=== PATIENT | male | born 1965 | race Two or more races ===

== ENCOUNTER 2021-12-06 19:26 | Emergency (ER) | payer OTHER, SELFPAY ==
[2021-12-06 19:47] VITALS: BP 127/82; PULSE 91; RESP 18; TEMP 36.8; O2SAT 95; BMI 27.3
== END 2021-12-07 02:20 | disposition left against medical advice (07) ==
PROVIDERS: Emergency Provider Emergency Medicine; PCP Internal Medicine
DX: R06.02 Shortness of breath (principal); R10.9 Unspecified abdominal pain
CPT/HCPCS: 99282

== ENCOUNTER → 2022-05-13 09:27 | Outpatient (BNVA) | payer OTHER, SELFPAY | PROVIDERS: PCP Internal Medicine; Visit Provider Nurse Practitioner | DX: K86.1 Other chronic pancreatitis (principal); R10.9 Unspecified abdominal pain; R63.4 Abnormal weight loss; B18.1 Chronic viral hepatitis B without delta-agent | CPT/HCPCS: 99202 ==

== ENCOUNTER 2022-05-24 10:10 | Outpatient (REF) | payer OTHER, SELFPAY ==
[2022-05-24 10:31] LABS: MANUAL DIFF FLAG NO
[2022-05-24 10:44] LABS: Basophils Absolute Auto 0.1 X10*3/uL (0.0-0.2); Basophils Percent Auto 0.6 % (0-2); Eosinophils Absolute Auto 0.3 X10*3/uL (0.0-0.4); Eosinophils Percent Auto 2.4 % (0-4); Hematocrit 42.8 % (42.0-52.0); Hemoglobin 14.3 g/dl (14.0-18.0); Imm Gran Abs Auto 0.03 X10*3/uL (0.00-0.03); Imm Gran Pct Auto 0.3 % (0.0-0.4); Lymphocytes Percent Auto 34.9 % (20-40); Mean Corpuscular HGB Conc 33.4 g/dl (31.0-36.0); Mean Corpuscular Hemoglobin 28.5 pg (27.0-33.0); Mean Corpuscular Volume 85.3 fL (80.0-98.0); Mean Platelet Volume 9.8 fL (9.4-12.4); Monocytes Absolute Auto 0.8 X10*3/uL (0.1-1.2); Monocytes Percent Auto 7.2 % (2-11); Neutrophils Absolute Auto 6.3 x10*3/uL (2.0-8.3); Neutrophils Percent Auto 54.6 % (45-73); Platelet Count 233 X10*3/uL (160-400); Red Blood Count 5.02 X10*6/uL (4.60-5.80); Red Cell Distribution Width 13.9 % (11.0-16.0); White Blood Count 11.5 X10*3/uL (4.8-10.8)
[2022-05-24 11:40] LABS: Alanine Aminotransferase 38 U/L (0-40); Alkaline Phosphatase 100 U/L (39-117); Amylase 62 U/L (28-100); Anion Gap 14 (12-20); Aspartate Amino Transferase 36 U/L (5-37); Bilirubin Total 0.8 mg/dL (0.0-1.0); Blood Urea Nitrogen 13 mg/dL (9-16); Calcium 9.5 mg/dL (8.4-10.2); Carbon Dioxide 26 mmol/L (22-29); Chloride 102 mmol/L (96-108); Estimated Glomerular Filt Rate > 60; Glucose Random 97 mg/dL (60-115); Lipase 21 U/L (8-78); Potassium 4.1 mmol/L (3.3-5.1); Sodium 138 mmol/L (135-145); Total Protein 8.3 g/dL (6.5-8.0)
[2022-06-02 21:21] LABS: Pancreatic Elastase-1 187 mcg/g
== END 2022-05-24 10:11 | disposition home or self-care (01) ==
LOC: HO.LAB 10:10
PROVIDERS: PCP Pediatrics; Visit Provider Nurse Practitioner
DX: K86.1 Other chronic pancreatitis (principal); R10.9 Unspecified abdominal pain; R63.4 Abnormal weight loss
CPT/HCPCS: 36415; 80053; 82150; 82656; 83690; 85025

== ENCOUNTER → 2022-05-28 10:01 | Outpatient (BNVA) | payer OTHER, SELFPAY | PROVIDERS: PCP Pediatrics; Visit Provider Nurse Practitioner | DX: K59.04 Chronic idiopathic constipation (principal); K58.9 Irritable bowel syndrome, unspecified; K86.1 Other chronic pancreatitis; B18.1 Chronic viral hepatitis B without delta-agent; R10.9 Unspecified abdominal pain; R63.4 Abnormal weight loss; R11.2 Nausea with vomiting, unspecified | CPT/HCPCS: 99212 ==

== ENCOUNTER → 2022-06-15 12:46 | Outpatient (BNVA) | payer OTHER, SELFPAY | PROVIDERS: PCP Pediatrics; Visit Provider Nurse Practitioner | DX: K86.1 Other chronic pancreatitis (principal); K59.04 Chronic idiopathic constipation; R11.2 Nausea with vomiting, unspecified | CPT/HCPCS: 99212 ==

== ENCOUNTER 2022-06-21 09:57 | Outpatient (REF) | payer OTHER, SELFPAY ==
--- NOTE | ~2022-06-21 | US_ITS ---
EXAMINATION: US ABDOMEN COMPLETE CLINICAL INFORMATION: Other chronic pancreatitis. COMPARISON: Abdominal ultrasound 11/19/2008 TECHNIQUE: Real-time imaging of the abdominal viscera. FINDINGS: PANCREAS: Obscured by bowel gas. ABDOMINAL AORTA: The proximal, mid, and distal segments are normal in caliber. INFERIOR VENA CAVA: Visualized portions are normal. LIVER: The liver is normal in size. The liver contour is normal. There is diffuse increased liver parenchymal echogenicity, consistent with infiltrative hepatocellular disease. No focal hepatic lesion. Trace possible intrahepatic biliary duct dilatation. GALLBLADDER: Patient reports tenderness over the gallbladder. The gallbladder is physiologically distended without evidence of stones, polyps, wall thickening or pericholecystic fluid. COMMON BILE DUCT: Dilated measuring 1.0 cm in diameter. RIGHT KIDNEY: Normal. No hydronephrosis. No renal calculi or focal parenchymal lesions. The kidney measures 10.6 cm in maximum dimension. LEFT KIDNEY: Normal. No hydronephrosis. No renal calculi or focal parenchymal lesions. The kidney measures 11.3 cm in maximum dimension. SPLEEN: Normal. The spleen measures 10.0 cm in maximum dimension. FREE FLUID: None. US/US abdomen complete IMPRESSION: Patient reports tenderness over the gallbladder however there is no cholelithiasis or other findings to suggest cholecystitis. Increased hepatic echogenicity which can be seen in the setting of hepatic steatosis or underlying liver disease. No liver lesion. Common bile duct is mildly dilated with trace possible intrahepatic biliary duct dilatation. Consider correlation with LFTs and MRCP if warranted.
== END 2022-06-21 09:58 | disposition home or self-care (01) ==
LOC: HO.HMGCX 09:57
PROVIDERS: PCP Pediatrics; Visit Provider Nurse Practitioner
DX: K86.1 Other chronic pancreatitis (principal); B18.1 Chronic viral hepatitis B without delta-agent
CPT/HCPCS: 76700

== ENCOUNTER → 2022-07-01 09:58 | Outpatient (BNVA) | payer OTHER, SELFPAY | PROVIDERS: PCP Pediatrics; Visit Provider Nurse Practitioner | DX: K86.1 Other chronic pancreatitis (principal); K59.04 Chronic idiopathic constipation; R11.2 Nausea with vomiting, unspecified | CPT/HCPCS: 99212 ==

== ENCOUNTER → 2022-09-15 13:16 | Outpatient (BNVA) | payer OTHER, SELFPAY | PROVIDERS: PCP Pediatrics; Visit Provider Nurse Practitioner | DX: R10.11 Right upper quadrant pain (principal); B18.1 Chronic viral hepatitis B without delta-agent | CPT/HCPCS: 99212 ==

== ENCOUNTER 2022-10-13 12:54 | Outpatient (REF) | payer OTHER, SELFPAY | END 2022-10-13 12:55 | disposition home or self-care (01) | LOC: HO.LAB 12:54 | PROVIDERS: PCP Pediatrics; Visit Provider Internal Medicine | DX: B18.1 Chronic viral hepatitis B without delta-agent (principal) | CPT/HCPCS: 99202 ==

== ENCOUNTER 2022-12-01 09:26 | Outpatient (REF) | payer OTHER, SELFPAY | END 2022-12-01 09:27 | disposition home or self-care (01) | LOC: HO.XRAY 09:26 | PROVIDERS: PCP Pediatrics; Visit Provider Internal Medicine Rheumatology | DX: Z13.89 Encounter for screening for other disorder (principal) ==

== ENCOUNTER 2022-12-02 11:38 | Outpatient (REF) | payer OTHER, SELFPAY ==
--- NOTE | ~2022-12-02 | XR_ITS ---
EXAMINATION: X-RAY RIGHT HAND X-RAY LEFT HAND CLINICAL INFORMATION: Pain. COMPARISON: None TECHNIQUE: 3 views of each hand. FINDINGS: No acute fractures or subluxation. Carpal rows are maintained. Negative ulnar variance in the right wrist with joint space narrowing and subcortical sclerosis of the radiocarpal articulation suggesting degenerative osteoarthritis. Mild joint space narrowing and subcortical sclerosis of the first carpometacarpal space, greater on the right hand. There is also mild multifocal joint space narrowing with very tiny osteophyte at multiple interphalangeal joints. No erosions or chondrocalcinosis. No unexpected radiopaque foreign bodies. XR/XR hand RT min 3V IMPRESSION: 1. No acute fractures or subluxation. 2. Negative ulnar variance in the right wrist. 3. Mild degenerative osteoarthritis of the radiocarpal, first carpometacarpal joints and interphalangeal joints, greater on the right hand.
--- NOTE | ~2022-12-02 | XR_ITS ---
EXAMINATION: X-RAY RIGHT SHOULDER X-RAY LEFT SHOULDER CLINICAL INFORMATION: Pain. COMPARISON: None. TECHNIQUE: 4 views of each shoulder. FINDINGS: No acute fractures or subluxation. Small enthesophytes in the right greater than left acromioclavicular joints. No abnormal soft tissue calcifications. The included portions of the ribs, lungs and cardiomediastinum are within normal limits. XR/XR shoulder LT min 2V IMPRESSION: 1. No acute fractures or subluxation. 2. Mild degenerative osteoarthritis of the acromioclavicular joints.
--- NOTE | ~2022-12-02 | XR_ITS ---
EXAMINATION: X-RAY RIGHT SHOULDER X-RAY LEFT SHOULDER CLINICAL INFORMATION: Pain. COMPARISON: None. TECHNIQUE: 4 views of each shoulder. FINDINGS: No acute fractures or subluxation. Small enthesophytes in the right greater than left acromioclavicular joints. No abnormal soft tissue calcifications. The included portions of the ribs, lungs and cardiomediastinum are within normal limits. XR/XR shoulder RT min 2V IMPRESSION: 1. No acute fractures or subluxation. 2. Mild degenerative osteoarthritis of the acromioclavicular joints.
--- NOTE | ~2022-12-02 | XR_ITS ---
EXAMINATION: X-RAY RIGHT HAND X-RAY LEFT HAND CLINICAL INFORMATION: Pain. COMPARISON: None TECHNIQUE: 3 views of each hand. FINDINGS: No acute fractures or subluxation. Carpal rows are maintained. Negative ulnar variance in the right wrist with joint space narrowing and subcortical sclerosis of the radiocarpal articulation suggesting degenerative osteoarthritis. Mild joint space narrowing and subcortical sclerosis of the first carpometacarpal space, greater on the right hand. There is also mild multifocal joint space narrowing with very tiny osteophyte at multiple interphalangeal joints. No erosions or chondrocalcinosis. No unexpected radiopaque foreign bodies. XR/XR hand LT min 3V IMPRESSION: 1. No acute fractures or subluxation. 2. Negative ulnar variance in the right wrist. 3. Mild degenerative osteoarthritis of the radiocarpal, first carpometacarpal joints and interphalangeal joints, greater on the right hand.
== END 2022-12-02 11:39 | disposition home or self-care (01) ==
LOC: HO.XRAY 11:38
PROVIDERS: PCP Internal Medicine; Visit Provider Internal Medicine Rheumatology
DX: M79.641 Pain in right hand (principal); M79.642 Pain in left hand; M25.511 Pain in right shoulder; M25.512 Pain in left shoulder
CPT/HCPCS: 73030; 73130

== ENCOUNTER 2022-12-27 10:59 | Outpatient (REF) | payer OTHER, SELFPAY ==
[2022-12-27 11:17] LABS: MANUAL DIFF FLAG NO
[2022-12-27 12:00] LABS: Basophils Absolute Auto 0.1 X10*3/uL (0.0-0.2); Basophils Percent Auto 0.5 % (0-2); Eosinophils Absolute Auto 0.5 X10*3/uL (0.0-0.4); Eosinophils Percent Auto 4.3 % (0-4); Hematocrit 45.6 % (42.0-52.0); Hemoglobin 14.9 g/dl (14.0-18.0); Imm Gran Abs Auto 0.02 X10*3/uL (0.00-0.03); Imm Gran Pct Auto 0.2 % (0.0-0.4); Lymphocytes Absolute Auto 3.8 X10*3/uL (1.2-4.9); Lymphocytes Percent Auto 34.9 % (20-40); Mean Corpuscular HGB Conc 32.7 g/dl (31.0-36.0); Mean Corpuscular Hemoglobin 28.3 pg (27.0-33.0); Mean Corpuscular Volume 86.5 fL (80.0-98.0); Mean Platelet Volume 10.6 fL (9.4-12.4); Monocytes Absolute Auto 0.8 X10*3/uL (0.1-1.2); Monocytes Percent Auto 7.6 % (2-11); Neutrophils Absolute Auto 5.7 x10*3/uL (2.0-8.3); Neutrophils Percent Auto 52.5 % (45-73); Platelet Count 226 X10*3/uL (160-400); Red Blood Count 5.27 X10*6/uL (4.60-5.80); Red Cell Distribution Width 13.3 % (11.0-16.0); White Blood Count 10.9 X10*3/uL (4.8-10.8)
[2022-12-27 12:42] LABS: Alanine Aminotransferase 36 U/L (0-40); Albumin Level 4.3 g/dL (3.5-5.0); Alkaline Phosphatase 92 U/L (39-117); Anion Gap 15 (12-20); Aspartate Amino Transferase 35 U/L (5-37); Bilirubin Total 1.1 mg/dL (0.0-1.0); Blood Urea Nitrogen 12 mg/dL (9-16); C Reactive Protein 0.74 mg/dL (< or = 0.50); Calcium 9.5 mg/dL (8.4-10.2); Carbon Dioxide 27 mmol/L (22-29); Chloride 102 mmol/L (96-108); Estimated Glomerular Filt Rate > 60; Glucose Random 79 mg/dL (60-115); Potassium 4.6 mmol/L (3.3-5.1); Sodium 139 mmol/L (135-145); Total Protein 7.8 g/dL (6.5-8.0)
[2022-12-27 12:47] LABS: Erythrocyte Sedimentation Rate 13 MM/HR (0-15)
[2022-12-28 12:58] LABS: Cyclic Citrullinated Peptide <16 UNITS
== END 2022-12-27 11:00 | disposition home or self-care (01) ==
LOC: HO.LAB 10:59
PROVIDERS: Visit Provider Internal Medicine Rheumatology
DX: M25.511 Pain in right shoulder (principal); M25.512 Pain in left shoulder; M79.641 Pain in right hand; M79.642 Pain in left hand
CPT/HCPCS: 36415; 80053; 85025; 85652; 86140; 86200

== ENCOUNTER → 2023-01-05 09:12 | Outpatient (BNVA) | payer OTHER, SELFPAY | PROVIDERS: PCP Internal Medicine; Visit Provider Internal Medicine Rheumatology | DX: M19.041 Primary osteoarthritis, right hand (principal); M19.042 Primary osteoarthritis, left hand; M50.30 Other cervical disc degeneration, unspecified cervical region; M51.36 Other intervertebral disc degeneration, lumbar region; M75.81 Other shoulder lesions, right shoulder; M75.82 Other shoulder lesions, left shoulder | CPT/HCPCS: 99212 ==

== ENCOUNTER → 2023-02-10 11:39 | Outpatient (BNVA) | payer OTHER, SELFPAY | PROVIDERS: PCP Pediatrics; Referring Provider Pediatrics; Visit Provider Nurse Practitioner | DX: R10.9 Unspecified abdominal pain (principal); K70.0 Alcoholic fatty liver; B18.1 Chronic viral hepatitis B without delta-agent; Z79.899 Other long term (current) drug therapy; Z86.010 Personal history of colon polyps | CPT/HCPCS: 99212 ==

== ENCOUNTER 2023-03-01 09:23 | Outpatient (REF) | payer OTHER, SELFPAY ==
--- NOTE | ~2023-03-01 | US_ITS ---
EXAMINATION: US ABDOMEN COMPLETE CLINICAL INFORMATION: Alcoholic fatty liver. Pain in the epigastric area. Evaluate for hernia. COMPARISON: Ultrasound abdomen complete 06/21/2022 and 11/19/2008. TECHNIQUE: Real-time imaging of the abdominal viscera. FINDINGS: PANCREAS: Most of the pancreas was obscured by bowel gas and could not be evaluated. ABDOMINAL AORTA: The proximal, mid, and distal segments are normal in caliber. INFERIOR VENA CAVA: Visualized portions are normal. LIVER: The liver is normal in size. The liver contour is normal. There is diffuse heterogeneous increased liver parenchymal echogenicity, consistent with hepatic steatosis. No focal hepatic lesion. There is no intrahepatic biliary duct dilatation seen. GALLBLADDER: The gallbladder is physiologically distended without evidence of stones, sludge, polyps, wall thickening or pericholecystic fluid. COMMON BILE DUCT: Normal in caliber measuring 0.8 cm in diameter. RIGHT KIDNEY: Normal. No hydronephrosis. No renal calculi or focal parenchymal lesions. The kidney measures 9.3 cm in maximum dimension. LEFT KIDNEY: Normal. No hydronephrosis. No renal calculi or focal parenchymal lesions. The kidney measures 11.4 cm in maximum dimension. SPLEEN: Normal. The spleen measures 9.8 cm in maximum dimension. FREE FLUID: None. ADDITIONAL FINDINGS: No hernias were visualized in the area of clinical concern in the gastric area in the region pointed out by the patient. US/US abdomen complete IMPRESSION: Hepatic steatosis.
== END 2023-03-01 09:24 | disposition home or self-care (01) ==
LOC: HO.US 09:23
PROVIDERS: PCP Pediatrics; Visit Provider Nurse Practitioner
DX: K70.0 Alcoholic fatty liver (principal); R10.9 Unspecified abdominal pain
CPT/HCPCS: 76700

== ENCOUNTER → 2023-03-08 09:33 | Outpatient (BNVA) | payer OTHER, SELFPAY | PROVIDERS: PCP Pediatrics; Visit Provider Nurse Practitioner | DX: K86.1 Other chronic pancreatitis (principal); K70.0 Alcoholic fatty liver; R10.9 Unspecified abdominal pain; M54.6 Pain in thoracic spine; B18.1 Chronic viral hepatitis B without delta-agent | CPT/HCPCS: 99212 ==

== ENCOUNTER 2023-04-05 11:48 | Outpatient (REF) | payer OTHER, SELFPAY | END 2023-04-05 11:49 | disposition home or self-care (01) | LOC: HO.XRAY 11:48 | PROVIDERS: PCP Pediatrics; Visit Provider Nurse Practitioner | DX: Z13.89 Encounter for screening for other disorder (principal) ==

== ENCOUNTER 2023-04-05 11:49 | Outpatient (RCR) | payer OTHER, SELFPAY ==
--- NOTE | ~2023-04-05 | XR_ITS ---
EXAMINATION: XR THORACOLUMBAR SPINE CLINICAL INFORMATION: Pain in thoracic spine COMPARISON: None available. TECHNIQUE: 3 views of the thoracic spine FINDINGS: Vertebral body heights are preserved. There is mild degenerative disc disease. There is a mild S-shaped scoliotic curvature in the thoracic spine. Soft tissues and mediastinal structures are unremarkable. XR/XR thoracic spine 2V IMPRESSION: Mild S-shaped scoliotic curvature in the thoracic spine.
== END 2023-05-19 07:46 | disposition home or self-care (01) ==
LOC: HO.PT 11:49
PROVIDERS: PCP Pediatrics; Visit Provider Internal Medicine Rheumatology
DX: M75.81 Other shoulder lesions, right shoulder (principal); M75.82 Other shoulder lesions, left shoulder
CPT/HCPCS: 72070

== ENCOUNTER 2023-05-26 09:14 | Outpatient (REF) | payer OTHER, SELFPAY | END 2023-05-26 09:15 | disposition home or self-care (01) | LOC: HO.LAB 09:14 | PROVIDERS: PCP Pediatrics; Visit Provider Internal Medicine | DX: Z13.89 Encounter for screening for other disorder (principal) ==

== ENCOUNTER 2023-08-24 09:48 | Outpatient (REF) | payer OTHER, SELFPAY ==
[2023-08-24 10:12] LABS: MANUAL DIFF FLAG NO
[2023-08-24 10:29] LABS: Lactic Acid 1.4 mmol/L (0.5-2.0)
[2023-08-24 10:31] LABS: Basophils Percent Auto 0.4 % (0-2); Eosinophils Absolute Auto 0.4 X10*3/uL (0.0-0.4); Eosinophils Percent Auto 3.7 % (0-4); Hematocrit 46.2 % (42.0-52.0); Imm Gran Abs Auto 0.03 X10*3/uL (0.00-0.03); Imm Gran Pct Auto 0.3 % (0.0-0.4); Lymphocytes Absolute Auto 3.3 X10*3/uL (1.2-4.9); Lymphocytes Percent Auto 35.3 % (20-40); Mean Corpuscular HGB Conc 32.5 g/dl (31.0-36.0); Mean Corpuscular Volume 86.4 fL (80.0-98.0); Mean Platelet Volume 10.4 fL (9.4-12.4); Monocytes Absolute Auto 0.7 X10*3/uL (0.1-1.2); Monocytes Percent Auto 7.8 % (2-11); Neutrophils Percent Auto 52.5 % (45-73); Platelet Count 225 X10*3/uL (160-400); Red Blood Count 5.35 X10*6/uL (4.60-5.80); Red Cell Distribution Width 13.8 % (11.0-16.0); White Blood Count 9.5 X10*3/uL (4.8-10.8)
[2023-08-24 10:47] LABS: INTERNATIONAL NORM RATIO 1.1 (0.9-1.1); Prothrombin Time 13.7 SEC (11.1-13.3)
[2023-08-24 11:56] LABS: HBS Num1 0.37 mIU/mL (0-7.99); HIV AB/AG Nonreactive (Nonreactive); HIV Num 1 0.07 S/CO (0.00-0.99); ~Hepatitis B Surface Antibody NONREACTIVE (Nonreactive)
[2023-08-25 09:38] LABS: HBsAGNum2 Reactive; HBsAGNum3 Reactive; Hepatitis B Surface Antigen Retest CNFM (Negative)
[2023-08-25 19:08] LABS: Hepatitis B Viral DNA Qn - cp NOT DETECTED Log IU/mL (NOT DETECTED); Hepatitis B Viral DNA Qn-IU/mL NOT DETECTED (NOT DETECTED)
[2023-08-26 21:29] LABS: Hepatitis BE Antigen REACTIVE (NON-REACTIVE)
[2023-08-26 22:48] LABS: Hepatitis BE Antibody NON-REACTIVE (NON-REACTIVE)
[2023-08-27 19:34] LABS: Hepatitis Delta Antibody NEGATIVE
[2023-08-28 19:59] LABS: CK-BB None Detected (None Detected); CK-MB 0 % (<5); CK-MM 100 % (95-100); Creatine Kinase,Total,Serum 33 U/L (44-196)
== END 2023-08-24 09:49 | disposition home or self-care (01) ==
LOC: HO.LAB 09:48
PROVIDERS: PCP Pediatrics; Visit Provider Internal Medicine
DX: Z11.4 Encounter for screening for human immunodeficiency virus [HIV] (principal); B18.1 Chronic viral hepatitis B without delta-agent
CPT/HCPCS: 36415; 82552; 83605; 85025; 85610; 86692; 86706; 86707; 87340; 87350; 87389; 87517

== ENCOUNTER 2023-09-07 13:01 | Outpatient (AMB) | payer OTHER, SELFPAY ==
[2023-09-07 13:12] VITALS: PULSE 86; O2SAT 95; BMI 22.1
--- NOTE | 2023-09-07 13:12 | MHC.OFFVIS ---
Intake Vital Signs 09/07/23 13:12 Height 5 ft 9 in Weight 150 lb BMI 22.1 Pulse 86 Pulse Source Pulse Oximeter Pulse Oximetry (%) 95 Intake Visit Reasons: f/u,lab,Hepatitis-B Allergies adhesive [ADHESIVE] Allergy (Intermediate, Verified 09/07/23 13:18) RASH morphine [MORPHINE] Allergy (Unknown, Verified 09/07/23 13:18) SHORTNESS OF BREATH Penicillins [PENICILLINS] Allergy (Unknown, Verified 09/07/23 13:18) SWELLING tramadol [TRAMADOL] Allergy (Unknown, Verified 09/07/23 13:18) SHORTNESS OF BREATH ibuprofen [From MOTRIN] Adverse Reaction (Unknown, Verified 09/07/23 13:18) N/V, GI PAIN ibuprofen Allergy (Unknown, Uncoded 01/05/23 09:30) nausea and vomiting naproxen Allergy (Unknown, Uncoded 01/05/23 09:30) nausea and vomiting penicillin Allergy (Unknown, Uncoded 01/05/23 09:30) anaphylaxis tramadol Allergy (Unknown, Uncoded 01/05/23 09:30) redness and itching creon Adverse Reaction (Severe, Uncoded 01/05/23 09:30) Abdominal Pain HPI f/u,lab,Hepatitis-B HPI Details I have not seen him in a while. He wants to consider switch to Truvada although aware increased bone and renal toxicity. [facility] Medical History Nausea and vomiting Tubular adenoma of colon Cocaine abuse Patient on methadone maintenance therapy COPD (chronic obstructive pulmonary disease) Complication of liver disease Opiate addiction HTN (hypertension) Surgical History History of ERCP History of esophagogastroduodenoscopy (EGD) H/O colonoscopy Family History Mother Diabetes HTN (hypertension) Sister Diabetes Social History Alcohol intake: current Alcohol intake frequency: holidays/special occasions only Alcohol type: beer Patient Tobacco Use Status: Current everyday Tobacco user Cigarettes Per Day: 2 Years Smoked: 45 Review of Systems Const All systems reviewed & are unremarkable except as noted in HPI and below Physical Exam Vital Signs: Last Vital Signs Pulse 86 09/07/23 13:12 Pulse Ox 95 09/07/23 13:12 BMI result Body Mass Index 22.1 Const General: cooperative Orientation/consciousness: patient oriented x3 HEENT Head: Yes normal to inspection Mouth: Normal oral and palatal mucosa present Eyes General: appearance normal, both eyes and all related structures Pupils: Equal, round and reactive pupils present Resp Effort & Inspection: normal respiratory effort Cardio Rate: regular rate Rhythm: regular rhythm GI Palpation (GI): Soft to palpation and nontender General: Yes no CVA tenderness Back/Spine/Pelvis Back: no CVA tenderness Skin General skin exam: no rashes or lesions noted Neuro General: patient oriented x3 Cranial nerves: Yes CN's II-XII intact bilaterally and Yes Equal, round and reactive pupils present Extrem General: Yes normal to inspection Psych Appearance: grossly normal Assessment & Plan Assessment & Plan (1) Chronic hepatitis B virus infection: Comment: He has possible intolerance to tenofovir alafenamide?lactic acidosis?other disorder muscle enzyme increase He may tolerate tenofovir fumarate and can give this since under 58 and no kidney dysfunction of note. Code(s): B18.1 - Chronic viral hepatitis B without delta-agent Plan: See back in three months Orders: Orders Hepatitis B Viral DNA Qn 3 Months B18.1 - Chronic viral hepatitis B without delta-agent Basic Metabolic Panel 3 Months B18.1 - Chronic viral hepatitis B without delta-agent Liver Panel 3 Months B18.1 - Chronic viral hepatitis B without delta-agent Medications: New emtricitabine-tenofovir (TDF) 200-300 mg (Truvada) 1 tab PO DAILY 30 tabs 2RF 30 days Coding Level of Care Code Est Pt Level 3 (68696) Diagnoses Chronic hepatitis B virus infection B18.1
== END 2023-09-07 13:49 | disposition home or self-care (01) ==
PROVIDERS: PCP Pediatrics; Visit Provider Internal Medicine
DX: B18.1 Chronic viral hepatitis B without delta-agent (principal)
CPT/HCPCS: 99213

== ENCOUNTER → 2023-09-07 13:01 | Outpatient (BNVA) | payer OTHER, SELFPAY | PROVIDERS: PCP Pediatrics; Visit Provider Internal Medicine | DX: B18.1 Chronic viral hepatitis B without delta-agent (principal) | CPT/HCPCS: 99212 ==

== ENCOUNTER 2023-10-06 09:51 | Outpatient (AMB) | payer OTHER, SELFPAY ==
--- NOTE | 2023-10-06 09:56 | A.OFFVIS_ITS ---
Intake Vital Signs 10/06/23 10:00 Height 5 ft 9 in Weight 171 lb BMI 25.2 BP 135/82 Blood Pressure Location Rt brachial Position Sitting Pulse 77 Intake Visit Reasons: follow up req from pt Intake Note: Patient present to in office visit today in follow up of abdominal pain. CC: Patient c/o abdominal pain and states he would like to have upper EGD to find out what's going on. Denies having other GI symptoms. Online Advertising Director Required: No Accompanied by: Spouse Allergies adhesive [ADHESIVE] Allergy (Intermediate, Verified 10/06/23 10:04) RASH morphine [MORPHINE] Allergy (Unknown, Verified 10/06/23 10:04) SHORTNESS OF BREATH Penicillins [PENICILLINS] Allergy (Unknown, Verified 10/06/23 10:04) SWELLING tramadol [TRAMADOL] Allergy (Unknown, Verified 10/06/23 10:04) SHORTNESS OF BREATH ibuprofen [From MOTRIN] Adverse Reaction (Unknown, Verified 10/06/23 10:04) N/V, GI PAIN ibuprofen Allergy (Unknown, Uncoded 01/05/23 09:30) nausea and vomiting naproxen Allergy (Unknown, Uncoded 01/05/23 09:30) nausea and vomiting penicillin Allergy (Unknown, Uncoded 01/05/23 09:30) anaphylaxis tramadol Allergy (Unknown, Uncoded 01/05/23 09:30) redness and itching creon Adverse Reaction (Severe, Uncoded 01/05/23 09:30) Abdominal Pain HPI follow up req from pt HPI Details Assessment & Plan (1) Gastric pain: ?Code(s): R10.9 - Unspecified abdominal pain ?Plan: He continues to have the pain as above. He is now taking omeprazole so will hold off on the HP testing until EGD. Will give a trial of creon to rest the pancreas. He says that 1/2 an oxycodone makes everything work perfectly. He wants me ot rx this, but given his history and the ill effects on the GI system of opioids this is not a good option. He continues on his Vemlidy which is a contributing factor. Will also get an XR of the thoracic spine to see if referral to pain mgmt is reasonable He does have a hx of herniated discs in his lumbar spine as he used to work construction. ROV 3 weeks (2) Fatty liver, alcoholic: ?Comment: BASELINE LABS: 04/2022 platelets are normal at 233,000 hundred thirty three thousand, creatinine is normal as well as GFR, AST ALT 36/38 with a total bili of 0.8 and alk-phos of 100, he is positive for viral hepatitis B which is treated at [facility],.? KP is negative, he is negative for hepatitis C and HIV, SMA AND MITOCHONDRIAL ANTIBODIES DO NOT APPEAR IN THE RECORDS I HAVE, INITIAL FIBROSIS SCORE VIA FIBER SURE IS F2. CURRENT LABS 12/27/22 ?11:17 Total Bilirubin 1.1 H AST 35 ALT 36 Alkaline Phosphatase 92 C-Reactive Protein 0.74 H ? ULTRASOUND OF THE ABDOMEN 03/02/23? FINDINGS: PANCREAS: Most of the pancreas was obscured by bowel gas and could not be evaluated. ABDOMINAL AORTA: The proximal, mid, and distal segments are normal in caliber. INFERIOR VENA CAVA: Visualized portions are normal. LIVER: The liver is normal in size. The liver contour is normal. There is diffuse heterogeneous increased liver parenchymal echogenicity, consistent with hepatic steatosis.? No focal hepatic lesion. There is no intrahepatic biliary duct dilatation seen. GALLBLADDER: The gallbladder is physiologically distended without evidence of stones, sludge, polyps, wall thickening or pericholecystic fluid. COMMON BILE DUCT: Normal in caliber measuring 0.8 cm in diameter. RIGHT KIDNEY: Normal. No hydronephrosis. No renal calculi or focal parenchymal lesions. The kidney measures 9.3 cm in maximum dimension. LEFT KIDNEY: Normal. No hydronephrosis. No renal calculi or focal parenchymal lesions. The kidney measures 11.4 cm in maximum dimension. SPLEEN: Normal. The spleen measures 9.8 cm in maximum dimension. FREE FLUID: None. ADDITIONAL FINDINGS: No hernias were visualized in the area of clinical concern in the gastric area in the region pointed out by the patient. US/US abdomen complete IMPRESSION: Hepatic steatosis. ?Code(s): K70.0 - Alcoholic fatty liver (3) Chronic hepatitis B virus infection: ?Comment: He has possible intolerance to tenofovir alafenamide?lactic acidosis?other disorder muscle enzyme increase He may tolerate tenofovir fumarate and can give this since under 58 and no kidney dysfunction of note. ?Code(s): B18.1 - Chronic viral hepatitis B without delta-agent (4) Abdominal pain: ?Comment: Related to his Vemlidy treatment as it adverse effect ?Code(s): R10.9 - Unspecified abdominal pain (5) Chronic pancreatitis: ?Code(s): K86.1 - Other chronic pancreatitis (6) Thoracic spine pain: ?Code(s): M54.6 - Pain in thoracic spine ? ? ? Orders: Orders XR thoracic spine 2V 03/08/23 M5 4.6 - Pain in th oracic spine ? Lipase 10/13/22 B18.1 - Chronic vi ral hepatitis B wi thout delta-agent ? Amylase 10/13/22 B18.1 - Chronic vi ral hepatitis B wi thout delta-agent ? Liver Panel 10/13/22 B18.1 - Chronic vi ral hepatitis B wi thout delta-agent ? Liver Fibrosis Pnl 10/13/22 B18.1 - Chronic vi ral hepatitis B wi thout delta-agent ? Lactate Dehydrogen ase 03/08/23 M54.6 - Pain in th oracic spine, R10. 9 - Unspecified ab dominal pain, K70. 0 - Alcoholic fatt y liver, K86.1 - O ther chronic pancr eatitis ? C Reactive Protein 03/08/23 M54.6 - Pain in th oracic spine, R10. 9 - Unspecified ab dominal pain, K70. 0 - Alcoholic fatt y liver, K86.1 - O ther chronic pancr eatitis ? Erythrocyte Sedime ntation Rate 03/08/23 M54.6 - Pain in th oracic spine, R10. 9 - Unspecified ab dominal pain, K70. 0 - Alcoholic fatt y liver, K86.1 - O ther chronic pancr eatitis ? Medications: New ebxyan-xhbcrxum-sj ylase 36,000-114,0 00- 180,000 unit ( Creon) ?? administ er with meals and/ or snacks 1 cap PO .tidac 90 caps 3RF K86.1 - Other product director gutierrez pancreatitis LABS XR THORACIC SPINE 04/11/23 FINDINGS: Vertebral body heights are preserved. There is mild degenerative disc disease. There is a mild S-shaped scoliotic curvature in the thoracic spine. Soft tissues and mediastinal structures are unremarkable. XR/XR thoracic spine 2V IMPRESSION: Mild S-shaped scoliotic curvature in the thoracic spine. EGD BIOPSY TODAY'S VISIT He felt that the creon gave him more pain, so he stopped it. He now wants and EGD, and agrees he will go for labwork. He continues to have upper abd pain in the mid gastric area, at times it moves side to side, worse with eating. He denies respiratory or cardiac problems. THere are no prior problems with anesthesia or sedation. He has chronic Hepatitis B being treated with Vemlidy. No known FHX stomach or esophageal cancer. ROV after EGD [facility] Medical History (Updated 10/06/23 @ 10:50 by SWATI Vincent) Thoracic spine pain Nausea and vomiting Tubular adenoma of colon Cocaine abuse Patient on methadone maintenance therapy COPD (chronic obstructive pulmonary disease) Complication of liver disease Opiate addiction HTN (hypertension) Surgical History History of ERCP History of esophagogastroduodenoscopy (EGD) H/O colonoscopy Family History Mother Diabetes HTN (hypertension) Sister Diabetes Social History Alcohol intake: current Alcohol intake frequency: holidays/special occasions only Alcohol type: beer Patient Tobacco Use Status: Current everyday Tobacco user Cigarettes Per Day: 2 Years Smoked: 45 Review of Systems Const Denies fatigue, Denies fever(s), Denies night sweats, Denies poor appetite and Denies weight loss Eyes Details: glasses Reports requires corrective lenses ENT Reports Normal hearing present, Denies dental pain, Denies dysphagia, Denies hearing loss, Denies mouth pain, Denies odynophagia, Denies throat swelling, Denies tongue swelling and Reports other (Dentition adequate) Card Reports no additional complaints Resp Reports no additional complaints GI Reports abdominal pain, Denies melena, Denies bloating, Denies hematochezia, Denies constipation, Denies GI cramping, Denies dysphagia, Denies excessive flatus, Denies early satiety, Denies heartburn, Denies diarrhea, Denies nausea, Denies odynophagia, Denies vomiting and Denies hematemesis Musc Reports myalgias Skin/Breast Denies pruritus, Denies lesions, Denies rash and Denies jaundice Neuro Reports Normal hearing present and Denies Abnormal speech present Endo Denies fatigue Aller/Immun Denies throat swelling and Denies tongue swelling Physical Exam Vital Signs: Last Vital Signs Pulse 77 10/06/23 10:00 BP 135/82 10/06/23 10:00 BMI result Body Mass Index 25.2 Const General: cooperative, no acute distress, well developed and well groomed Nutritional Appearance: average body habitus and well nourished Orientation/consciousness: oriented to person, oriented to place and oriented to time Limitations: No language barrier HEENT Head: Yes normocephalic and Yes atraumatic Eyes General: appearance normal, both eyes and all related structures Pupils: Equal, round and reactive pupils present Neck Neck: Yes normal visual inspection and Yes no lymphadenopathy Thyroid: Thyroid normal Resp Effort & Inspection: normal respiratory effort and able to speak in complete sentences Auscultation: clear to auscultation bilaterally Cardio Rate: regular rate Rhythm: regular rhythm Heart sounds: Normal, physiologic split S2 sound present Peripheral pulses: radial pulses present and posterior tibial pulses present GI Inspection: No distended and No Abdominal panniculus present Palpation (GI): Soft to palpation, nontender, no guarding, not rigid and No hepatosplenomegaly present Percussion: Yes normal to percussion Auscultation: normal bowel sounds Rectal Exam - Male: Yes deferred Skin General skin exam: no rashes or lesions noted, turgor normal, skin not dry, no jaundice, No spider nevi and no striae Rashes: no rashes Nails: normal Neuro General: oriented to person, oriented to place and oriented to time Cranial nerves: Yes Equal, round and reactive pupils present and Yes Normal hearing present Speech: No Abnormal speech present Extrem General: Yes normal to inspection, No clubbing, No cyanosis and No edema Psych Appearance: grossly normal and well kempt Mental Status: mental status grossly normal Speech and movement: Normal speech and movement present Affect: normal affect Attitude: cooperative Thought process: Normal thought process present and not confabulating Thought content: Normal thought content present Insight: Limited insight present (Psych) Judgement: Limited judgement present (Psych) Assessment & Plan Assessment & Plan (1) Gastric pain: Code(s): R10.9 - Unspecified abdominal pain (2) Fatty liver, alcoholic: Comment: BASELINE LABS: 04/2022 platelets are normal at 233,000 hundred thirty three thousand, creatinine is normal as well as GFR, AST ALT 36/38 with a total bili of 0.8 and alk-phos of 100, he is positive for viral hepatitis B which is treated at [facility],. KP is negative, he is negative for hepatitis C and HIV, SMA AND MITOCHONDRIAL ANTIBODIES DO NOT APPEAR IN THE RECORDS I HAVE, INITIAL FIBROSIS SCORE VIA FIBER SURE IS F2. CURRENT LABS 12/27/22 11:17 Total Bilirubin 1.1 H AST 35 ALT 36 Alkaline Phosphatase 92 C-Reactive Protein 0.74 H ULTRASOUND OF THE ABDOMEN 03/02/23? FINDINGS: PANCREAS: Most of the pancreas was obscured by bowel gas and could not be evaluated. ABDOMINAL AORTA: The proximal, mid, and distal segments are normal in caliber. INFERIOR VENA CAVA: Visualized portions are normal. LIVER: The liver is normal in size. The liver contour is normal. There is diffuse heterogeneous increased liver parenchymal echogenicity, consistent with hepatic steatosis.? No focal hepatic lesion. There is no intrahepatic biliary duct dilatation seen. GALLBLADDER: The gallbladder is physiologically distended without evidence of stones, sludge, polyps, wall thickening or pericholecystic fluid. COMMON BILE DUCT: Normal in caliber measuring 0.8 cm in diameter. RIGHT KIDNEY: Normal. No hydronephrosis. No renal calculi or focal parenchymal lesions. The kidney measures 9.3 cm in maximum dimension. LEFT KIDNEY: Normal. No hydronephrosis. No renal calculi or focal parenchymal lesions. The kidney measures 11.4 cm in maximum dimension. SPLEEN: Normal. The spleen measures 9.8 cm in maximum dimension. FREE FLUID: None. ADDITIONAL FINDINGS: No hernias were visualized in the area of clinical concern in the gastric area in the region pointed out by the patient. US/US abdomen complete IMPRESSION: Hepatic steatosis. Code(s): K70.0 - Alcoholic fatty liver (3) Chronic hepatitis B virus infection: Comment: He has possible intolerance to tenofovir alafenamide?lactic acidosis?other disorder muscle enzyme increase He may tolerate tenofovir fumarate and can give this since under 58 and no kidney dysfunction of note. Code(s): B18.1 - Chronic viral hepatitis B without delta-agent (4) Chronic pancreatitis: Code(s): K86.1 - Other chronic pancreatitis (5) Thoracic scoliosis: Code(s): M41.9 - Scoliosis, unspecified (6) Pre-op examination: Code(s): Z01.818 - Encounter for other preprocedural examination Plan EGD BIOPSY TODAY'S VISIT He felt that the creon gave him more pain, so he stopped it. He now wants and EGD, and agrees he will go for labwork. He continues to have upper abd pain in the mid gastric area, at times it moves side to side, worse with eating. He denies respiratory or cardiac problems. THere are no prior problems with anesthesia or sedation. He has chronic Hepatitis B being treated with Vemlidy. No known FHX stomach or esophageal cancer. ROV after EGD Orders: Orders EGD with Johnson - GI Use Only Today R10.9 - Unspecified abdominal pain Coding Level of Care Code Est Pt Level 4 (26190) Diagnoses Gastric pain R10.9 Fatty liver, alcoholic K70.0 Chronic hepatitis B virus infection B18.1 Chronic pancreatitis K86.1 Thoracic scoliosis M41.9 Pre-op examination Z01.818
[2023-10-06 10:00] VITALS: BP 135/82; PULSE 77; BMI 25.2
== END 2023-10-06 10:41 | disposition home or self-care (01) ==
PROVIDERS: PCP Pediatrics; Visit Provider Nurse Practitioner
DX: R10.9 Unspecified abdominal pain (principal); K70.0 Alcoholic fatty liver; B18.1 Chronic viral hepatitis B without delta-agent; K86.1 Other chronic pancreatitis; M41.9 Scoliosis, unspecified; Z01.818 Encounter for other preprocedural examination
CPT/HCPCS: 99214

== ENCOUNTER 2023-10-06 09:51 | Outpatient (REF) | payer OTHER, SELFPAY ==
[2023-10-06 12:37] LABS: Erythrocyte Sedimentation Rate 11 MM/HR (0-15)
[2023-10-06 12:41] LABS: Alanine Aminotransferase 30 U/L (0-40); Albumin Level 4.1 g/dL (3.5-5.0); Alkaline Phosphatase 72 U/L (39-117); Amylase 58 U/L (28-100); Aspartate Amino Transferase 37 U/L (5-37); Bilirubin Direct 0.4 mg/dL (0.0-0.5); Bilirubin Total 0.9 mg/dL (0.0-1.0); C Reactive Protein 0.35 mg/dL (< or = 0.50); Lactate Dehydrogenase 131 U/L (118-273); Lipase 14 U/L (8-78); Total Protein 8.1 g/dL (6.5-8.0)
[2023-10-12 16:33] LABS: FIB-ALT 26 U/L (9-46); FIB-Alpha-2-Macroglobulin 260 mg/dL (106-279); FIB-Apolipoprotein A1 94 mg/dL (94-176); FIB-GGT 48 U/L (3-70); FIB-Haptoglobin 128 mg/dL (43-212); FIB-Total Bilirubin 0.7 mg/dL (0.2-1.2); Liver Fibrosis Score 0.65; Liver Fibrosis Stage F3; Nec Inflam Act Grade A0-A1; Nec Inflam Act Score 0.19
== END 2023-10-06 09:52 | disposition home or self-care (01) ==
LOC: HO.LAB 09:51
PROVIDERS: PCP Pediatrics; Visit Provider Nurse Practitioner
DX: Z01.818 Encounter for other preprocedural examination (principal); K86.1 Other chronic pancreatitis; B18.1 Chronic viral hepatitis B without delta-agent; K70.0 Alcoholic fatty liver; R10.9 Unspecified abdominal pain; M54.6 Pain in thoracic spine
CPT/HCPCS: 36415; 80076; 81596; 82150; 83615; 83690; 85652; 86140; 99212

== ENCOUNTER 2023-10-25 10:51 | Day surgery (SDC) | payer OTHER, SELFPAY ==
[2023-10-25 11:23] VITALS: BP 139/89; PULSE 82; RESP 16; TEMP 37.1; O2SAT 96; BMI 25.1
--- NOTE | 2023-10-25 11:48 | P.CONAN_ITS ---
[facility] Active Problems Active Problems: All Active Problems (Updated 10/06/23 @ 10:50 by SWATI Vincent) Pre-op examination (Acute) Thoracic scoliosis (Acute) Gastric pain (Acute) Fatty liver, alcoholic (Acute) Tendonitis of both rotator cuffs (Acute) Osteoarthritis of hands, bilateral (Acute) Fibromyalgia (Acute) Bilateral hand pain (Acute) Bilateral shoulder pain (Acute) Degenerative disc disease, cervical (Acute) Lumbar degenerative disc disease (Acute) Chronic hepatitis B virus infection (Acute) Abnormal weight loss (Acute) Abdominal pain (Acute) Chronic pancreatitis (Acute) Past Medical History Medical History Thoracic spine pain Nausea and vomiting Tubular adenoma of colon Cocaine abuse Patient on methadone maintenance therapy COPD (chronic obstructive pulmonary disease) Complication of liver disease Opiate addiction HTN (hypertension) Family History Family History Mother Diabetes HTN (hypertension) Sister Diabetes Surgical History Surgical History History of ERCP History of esophagogastroduodenoscopy (EGD) H/O colonoscopy History of Problems with Anesthesia: No Social History Social History Alcohol intake: current Alcohol intake frequency: holidays/special occasions only Alcohol type: beer Patient Tobacco Use Status: Current everyday Tobacco user Cigarettes Per Day: 2 Years Smoked: 45 Advance Directives: No Advance Directives Information Provided: Yes Meds Allergies Allergy/AdvReac Type Severity Reaction Status Date / Time adhesive [ADHESIVE] Allergy Intermediate RASH Verified 10/06/23 10:04 morphine [MORPHINE] Allergy Unknown SHORTNESS Verified 10/06/23 10:04 OF BREATH Penicillins [PENICILLINS] Allergy Unknown SWELLING Verified 10/06/23 10:04 tramadol [TRAMADOL] Allergy Unknown SHORTNESS Verified 10/06/23 10:04 OF BREATH ibuprofen [From MOTRIN] AdvReac Unknown N/V, GI Verified 10/06/23 10:04 PAIN ibuprofen Allergy Unknown nausea and Uncoded 01/05/23 09:30 vomiting naproxen Allergy Unknown nausea and Uncoded 01/05/23 09:30 vomiting penicillin Allergy Unknown anaphylaxis Uncoded 01/05/23 09:30 tramadol Allergy Unknown redness Uncoded 01/05/23 09:30 and itching creon AdvReac Severe Abdominal Uncoded 01/05/23 09:30 Pain Home Medications Medication Instructions Recorded Confirmed Last Taken Type alprazolam 0.5 mg tablet 0.5 mg PO DAILY 05/13/22 12/01/22 Unknown History amlodipine 5 mg tablet 5 mg PO DAILY 05/13/22 12/01/22 Unknown History fluticasone propionate 110 1 puff inhalation BID 05/28/22 12/01/22 Unknown History mcg/actuation HFA aerosol inhaler (Flovent HFA) tenofovir alafenamide 25 mg tablet 25 mg PO DAILY 12/01/22 12/01/22 Unknown History (Vemlidy) omeprazole magnesium 20 mg 20 mg PO DAILY 03/08/23 Unknown History tablet,delayed release (Prilosec OTC) Exam Height,Weight and Vital Signs: Height 5 ft 9 in Weight 77.111 kg Last Vital Signs Temp 98.8 F 10/25/23 11:23 Pulse 82 10/25/23 11:23 Resp 16 10/25/23 11:23 BP 139/89 10/25/23 11:23 Pulse Ox 96 10/25/23 11:23 O2 Del Method Room Air 10/25/23 11:23 Airway Mallampati Class: III TM Dist: >3cm Neck ROM: Limited Loose/Missing/Broken Teeth: Yes and Upper Heart: RRR Lungs: CTA Assessment and Plan Assessment Anesthesia Assessment: Anesthesia Plan Discussed and Chart Reviewed Final Anesthetic Review History of Problems with Anesthesia: No NPO: Yes ASA Class: III Final Preanesthetic Review: Meds/Allgs Chart Reviewed, Consent Obtained/Reviewed and Anes Risks/Benef Reviewed Patient Risk: Intermediate Procedure Risk: Intermediate Anesthetic Plan Anesthetic Plan: MAC: Disposition: Standard PACU
--- NOTE | 2023-10-25 12:13 | MHC.SHP ---
Pre-Procedural Eval Section A - 24 Hr Update-Section A only Date of Service: 10/25/23 The patient is an INPATIENT: No Changes since office visit: Yes Patient answered all questions The patient has been examined within 24 hours of the surgical procedure. The History & Physical has been completed within 30 days and I have reviewed it.: Yes Section B - Complete if H&P > 30 days Chief Complaint: Unspecified abdominal pain Allergies: Allergies Allergy/AdvReac Type Severity Reaction Status Date / Time adhesive [ADHESIVE] Allergy Intermediate RASH Verified 10/06/23 10:04 morphine [MORPHINE] Allergy Unknown SHORTNESS Verified 10/06/23 10:04 OF BREATH Penicillins [PENICILLINS] Allergy Unknown SWELLING Verified 10/06/23 10:04 tramadol [TRAMADOL] Allergy Unknown SHORTNESS Verified 10/06/23 10:04 OF BREATH ibuprofen [From MOTRIN] AdvReac Unknown N/V, GI Verified 10/06/23 10:04 PAIN ibuprofen Allergy Unknown nausea and Uncoded 01/05/23 09:30 vomiting naproxen Allergy Unknown nausea and Uncoded 01/05/23 09:30 vomiting penicillin Allergy Unknown anaphylaxis Uncoded 01/05/23 09:30 tramadol Allergy Unknown redness Uncoded 01/05/23 09:30 and itching creon AdvReac Severe Abdominal Uncoded 01/05/23 09:30 Pain Plan Diagnosis/Plan: Unchanged I have reviewed the history and physical and performed a pertinent physical examination on my patient. No changes have occurred unless specified. Time Spent With Patient Time: Total time managing care of this patient today ____ minutes.
--- NOTE | 2023-10-25 12:52 | P.OP_ITS ---
Operative Note Operative Note Date of Service: 10/25/23 Narrative: Procedure: Esophagogastroduodenoscopy Endoscopist: Rimma Sherman MD Indication: Abdominal pain Anesthesia Provider: Dr Violet Barry Anesthesia Type: MAC ?? EGD Procedure:?? The procedure, indications, preparation and potential complications were reviewed with the patient, who indicated understanding and gave written informed consent to proceed. A physical exam was performed. The endoscope was introduced through the mouth, and advanced to the second part of duodenum. The mucosa was carefully examined on slow withdrawal of the endoscope. The patient tolerated the procedure well. There were no immediate complications.? ? EGD Findings:? * Esophagus:? Normal mucosa noted in the entire esophagus. The Z line was at 40 cm and regular. There was a small hiatal hernia. * Stomach:? Normal mucosa was noted in the stomach. Retroflexion was performed in the fundus. Random gastric biopsies were taken to rule out H Pylori infection. * Duodenum:? Normal mucosa was noted in the whole of the examined duodenum. Cold forceps biopsies were taken from duodenal bulb and second portion of the duodenum to rule out celiac sprue. ? EGD Impressions:? * Normal esophagus * Normal stomach (biopsy) * Normal duodenum (biopsy) ?? Recommendations:?? * Follow biopsy results. Our office will call or send a letter with results within 7-10 days. * No obvious etiology of abd pain such as esophagitis/gastritis, PUD etc noted on endoscopy today. * If H pylori +, patient will be prescribed eradication therapy followed by test of cure. * Avoid NSAIDs, smoking. * Cont Sarah Above has been reviewed with the patient.
[2023-10-25 12:55] VITALS: BP 121/77; PULSE 70; RESP 12; TEMP 36.1; O2SAT 100
[2023-10-25 13:10] VITALS: BP 129/79; PULSE 63; RESP 16; TEMP 36.2; O2SAT 96
== END 2023-10-25 13:38 | disposition home or self-care (01) ==
PROVIDERS: PCP Pediatrics; Visit Provider Internal Medicine
PROC: 0DJ08ZZ Inspection of Upper Intestinal Tract, Via Natural or Artificial Opening Endoscopic (ICD-10-PCS; CPT 43235; principal; 2023-10-25 12:00)
DX: R10.9 Unspecified abdominal pain (principal); K29.50 Unspecified chronic gastritis without bleeding; K44.9 Diaphragmatic hernia without obstruction or gangrene; K76.0 Fatty (change of) liver, not elsewhere classified; I10 Essential (primary) hypertension; M79.7 Fibromyalgia; J44.9 Chronic obstructive pulmonary disease, unspecified; F11.20 Opioid dependence, uncomplicated; F14.10 Cocaine abuse, uncomplicated; Z79.51 Long term (current) use of inhaled steroids; Z79.899 Other long term (current) drug therapy; Z88.0 Allergy status to penicillin; L23.1 Allergic contact dermatitis due to adhesives; Z88.8 Allergy status to other drugs, medicaments and biological substances; F17.210 Nicotine dependence, cigarettes, uncomplicated
CPT/HCPCS: 43239; 88305; 88313; 88342; J2704

== ENCOUNTER → 2023-10-25 10:51 | Outpatient (BNV) | payer OTHER, SELFPAY | PROVIDERS: PCP Pediatrics; Visit Provider Internal Medicine | DX: K44.9 Diaphragmatic hernia without obstruction or gangrene (principal) | CPT/HCPCS: 43239 ==

== ENCOUNTER 2023-12-01 11:47 | Outpatient (AMB) | payer OTHER, SELFPAY ==
--- NOTE | 2023-12-01 11:53 | A.OFFVIS_ITS ---
Intake Vital Signs 12/01/23 11:57 Height 5 ft 9 in Weight 171 lb BMI 25.2 BP 140/83 H Blood Pressure Location Lt brachial Position Sitting Intake Visit Reasons: S/P EGD hASAN Intake Note: Mohamud returns in follow up s/p EGD on 10/25/23. CC: Patient states that since after the EGD with bx he is having stomach pain, burning, occasional nausea, and he is having trouble eating now d/t pain. Patient states he is upset because he did not consent to a bx done. 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 Accompanied by: Self / Same As Patient Allergies adhesive [ADHESIVE] Allergy (Intermediate, Verified 12/01/23 12:05) RASH morphine [MORPHINE] Allergy (Unknown, Verified 12/01/23 12:05) SHORTNESS OF BREATH Penicillins [PENICILLINS] Allergy (Unknown, Verified 12/01/23 12:05) SWELLING tramadol [TRAMADOL] Allergy (Unknown, Verified 12/01/23 12:05) SHORTNESS OF BREATH ibuprofen [From MOTRIN] Adverse Reaction (Unknown, Verified 12/01/23 12:05) N/V, GI PAIN ibuprofen Allergy (Unknown, Uncoded 01/05/23 09:30) nausea and vomiting naproxen Allergy (Unknown, Uncoded 01/05/23 09:30) nausea and vomiting penicillin Allergy (Unknown, Uncoded 01/05/23 09:30) anaphylaxis tramadol Allergy (Unknown, Uncoded 01/05/23 09:30) redness and itching creon Adverse Reaction (Severe, Uncoded 01/05/23 09:30) Abdominal Pain Medication List - Last Reconciled 12/01/23 by SWATI Vnicent alprazolam 0.5 mg PO DAILY alum-mag hydroxide-simeth 400-400-40 mg/5 mL (Mylanta Maximum Strength) 7.5 mL PO QID PRN amlodipine 5 mg PO DAILY dicyclomine 10 mg PO QID emtricitabine-tenofovir (TDF) 200-300 mg (Truvada) 1 tab PO DAILY 30 days esomeprazole magnesium (Nexium) 20 mg PO DAILY famotidine 20 mg PO BEDTIME fluticasone propionate 110 mcg/actuation (Flovent HFA) 1 puff inhalation BID HPI S/P EGD hASAN HPI Details Assessment & Plan (1) Gastric pain: Code(s): R10.9 - Unspecified abdominal pain (2) Fatty liver, alcoholic: Comment: BASELINE LABS: 04/2022 platelets are normal at 233,000 hundred thirty three thousand, creatinine is normal as well as GFR, AST ALT 36/38 with a total bili of 0.8 and alk-phos of 100, he is positive for viral hepatitis B which is treated at [facility],. KP is negative, he is negative for hepatitis C and HIV, SMA AND MITOCHONDRIAL ANTIBODIES DO NOT APPEAR IN THE RECORDS I HAVE, INITIAL FIBROSIS SCORE VIA FIBER SURE IS F2. CURRENT LABS 12/27/22 11:17 Total Bilirubin 1.1 H AST 35 ALT 36 Alkaline Phosphatase 92 C-Reactive Protein 0.74 H ULTRASOUND OF THE ABDOMEN 03/02/23? FINDINGS: PANCREAS: Most of the pancreas was obscured by bowel gas and could not be evaluated. ABDOMINAL AORTA: The proximal, mid, and distal segments are normal in caliber. INFERIOR VENA CAVA: Visualized portions are normal. LIVER: The liver is normal in size. The liver contour is normal. There is diffuse heterogeneous increased liver parenchymal echogenicity, consistent with hepatic steatosis.? No focal hepatic lesion. There is no intrahepatic biliary duct dilatation seen. GALLBLADDER: The gallbladder is physiologically distended without evidence of stones, sludge, polyps, wall thickening or pericholecystic fluid. COMMON BILE DUCT: Normal in caliber measuring 0.8 cm in diameter. RIGHT KIDNEY: Normal. No hydronephrosis. No renal calculi or focal parenchymal lesions. The kidney measures 9.3 cm in maximum dimension. LEFT KIDNEY: Normal. No hydronephrosis. No renal calculi or focal parenchymal lesions. The kidney measures 11.4 cm in maximum dimension. SPLEEN: Normal. The spleen measures 9.8 cm in maximum dimension. FREE FLUID: None. ADDITIONAL FINDINGS: No hernias were visualized in the area of clinical concern in the gastric area in the region pointed out by the patient. US/US abdomen complete IMPRESSION: Hepatic steatosis. Code(s): K70.0 - Alcoholic fatty liver (3) Chronic hepatitis B virus infection: Comment: He has possible intolerance to tenofovir alafenamide?lactic acidosis?other disorder muscle enzyme increase He may tolerate tenofovir fumarate and can give this since under 58 and no kidney dysfunction of note. Code(s): B18.1 - Chronic viral hepatitis B without delta-agent (4) Chronic pancreatitis: Code(s): K86.1 - Other chronic pancreatitis (5) Thoracic scoliosis: Code(s): M41.9 - Scoliosis, unspecified (6) Pre-op examination: Code(s): Z01.818 - Encounter for other preprocedural examination Plan He felt that the creon gave him more pain, so he stopped it. He now wants and EGD, and agrees he will go for lab work. He continues to have upper abd pain in the mid gastric area, at times it moves side to side, worse with eating. He denies respiratory or cardiac problems. There are no prior problems with anesthesia or sedation. He has chronic Hepatitis B being treated with Vemlidy. No known FHX stomach or esophageal cancer. ROV after EGD Orders: Orders EGD with Johnson - G I Use Only Today R10.9 - Unspecifie d abdominal pain EGD 10/25/23 EGD Findings:? * Esophagus:? Normal mucosa noted in the entire esophagus. The Z line was at 40 cm and regular. There was a small hiatal hernia. * Stomach:? Normal mucosa was noted in the stomach. Retroflexion was performed in the fundus. Random gastric biopsies were taken to rule out H Pylori infection. * Duodenum:? Normal mucosa was noted in the whole of the examined duodenum. Cold forceps biopsies were taken from duodenal bulb and second portion of the duodenum to rule out celiac sprue. ? EGD Impressions:? * Normal esophagus * Normal stomach (biopsy) * Normal duodenum (biopsy)?? Recommendations:?? * Follow biopsy results. Our office will call or send a letter with results within 7-10 days. * No obvious etiology of abd pain such as esophagitis/gastritis, PUD etc noted on endoscopy today. * If H pylori +, patient will be prescribed eradication therapy followed by test of cure. * Avoid NSAIDs, smoking. * Cont Truvada BIOPSY Received: 10/25/23 Diagnosis A. Duodenal mucosa with preserved villi and focal mild changes suggesting chronic/non-specific duodenitis. B. Gastric antrum, biopsy: Gastric antral and body mucosa with focal ectatic vessels and focal minimal chronic inactive inflammation; negative for H pylori, intestinal metaplasia and dysplasia. Laboratory Tests 08/24/23 10/06/23 10:11 11:01 WBC 9.5 Hgb 15.0 Hct 46.2 Plt Count 225 Total Bilirubin 0.9 Direct Bilirubin 0.4 AST 37 ALT 30 Alkaline Phosphata se 72 Liver Fibrosis Sta ge F3 Amylase 58 Lipase 14 TODAY'S VISIT ? why Vemlidy stopped prior to procedure. He thought that the biopsy caused him more pain, but I explain that biopsies are done in [facility] very superficial levels and this usually does not cause pain. And the pain he is describing is the same pain that we have been treating him for since he began seeing me. He was also upset about being told to hold his hepatitis medication and I am uncertain why this was held. I explained to him that there was really nothing on covered to explain his symptoms. He says that it is better when he drinks Mylanta and I certainly do not have any problem with him utilizing this as long as he knows that taking too much could cause him diarrhea. He also continues on his generic Nexium. At this point we will try dicyclomine to see if the pain is actually bowel mediated. If this is not the case then I think the pain is most likely related to the musculoskeletal system and the scoliosis of the thoracic spine. Return office visit in 4 weeks [facility] Medical History Pre-op examination Thoracic spine pain Nausea and vomiting Tubular adenoma of colon Cocaine abuse Patient on methadone maintenance therapy COPD (chronic obstructive pulmonary disease) Complication of liver disease Opiate addiction HTN (hypertension) Surgical History History of ERCP History of esophagogastroduodenoscopy (EGD) H/O colonoscopy Family History Mother Diabetes HTN (hypertension) Sister Diabetes Social History Alcohol intake: current Alcohol intake frequency: holidays/special occasions only Alcohol type: beer Patient Tobacco Use Status: Current everyday Tobacco user Cigarettes Per Day: 2 Years Smoked: 45 Review of Systems Const Denies fatigue, Denies fever(s), Denies night sweats, Denies poor appetite and Denies weight loss ENT Reports Normal hearing present, Denies dental pain, Denies dysphagia, Denies hearing loss, Denies mouth pain, Denies odynophagia, Denies throat swelling, Denies tongue swelling and Reports other (Dentition adequate) Card Reports no additional complaints Resp Reports no additional complaints GI Details: Reports abdominal pain, Denies melena, Denies bloating, Denies hematochezia, Denies constipation, Denies GI cramping, Denies dysphagia, Denies excessive flatus, Denies early satiety, Reports heartburn, Denies diarrhea, Denies nausea, Denies odynophagia, Denies vomiting and Denies hematemesis Musc Reports back pain Skin/Breast Denies pruritus, Denies lesions, Denies rash and Denies jaundice Neuro Reports Normal hearing present and Denies Abnormal speech present Endo Denies fatigue Aller/Immun Denies throat swelling and Denies tongue swelling Physical Exam Vital Signs: Last Vital Signs BP 140/83 H 12/01/23 11:57 BMI result Body Mass Index 25.2 Const General: cooperative, no acute distress, well developed and well groomed Nutritional Appearance: average body habitus and well nourished Orientation/consciousness: oriented to person, oriented to place and oriented to time Limitations: No language barrier HEENT Head: Yes normocephalic and Yes atraumatic Eyes General: appearance normal, both eyes and all related structures Pupils: Equal, round and reactive pupils present Neck Neck: Yes normal visual inspection and Yes no lymphadenopathy Thyroid: Thyroid normal Resp Effort & Inspection: normal respiratory effort and able to speak in complete sentences Auscultation: clear to auscultation bilaterally Cardio Rate: regular rate Rhythm: regular rhythm Heart sounds: Normal, physiologic split S2 sound present Peripheral pulses: radial pulses present and posterior tibial pulses present GI Inspection: No distended and No Abdominal panniculus present Palpation (GI): Soft to palpation, Tenderness to palpation present (GI), no guarding, not rigid and No hepatosplenomegaly present Percussion: Yes normal to percussion Auscultation: normal bowel sounds Rectal Exam - Male: Yes deferred Skin General skin exam: no rashes or lesions noted, turgor normal, skin not dry, no jaundice, No spider nevi and no striae Rashes: no rashes Nails: normal Neuro General: oriented to person, oriented to place and oriented to time Cranial nerves: Yes Equal, round and reactive pupils present and Yes Normal hearing present Speech: No Abnormal speech present Extrem General: Yes normal to inspection, No clubbing, No cyanosis and No edema Psych Appearance: grossly normal and well kempt Mental Status: mental status grossly normal Speech and movement: Normal speech and movement present Affect: normal affect Attitude: cooperative Thought process: Normal thought process present and not confabulating Thought content: Normal thought content present Insight: Limited insight present (Psych) Judgement: Limited judgement present (Psych) Results Reviewed Results Reviewed: EGD 10/25/23 EGD Findings:? * Esophagus:? Normal mucosa noted in the entire esophagus. The Z line was at 40 cm and regular. There was a small hiatal hernia. * Stomach:? Normal mucosa was noted in the stomach. Retroflexion was performed in the fundus. Random gastric biopsies were taken to rule out H Pylori infection. * Duodenum:? Normal mucosa was noted in the whole of the examined duodenum. Cold forceps biopsies were taken from duodenal bulb and second portion of the duodenum to rule out celiac sprue. ? EGD Impressions:? * Normal esophagus * Normal stomach (biopsy) * Normal duodenum (biopsy)?? Recommendations:?? * Follow biopsy results. Our office will call or send a letter with results within 7-10 days. * No obvious etiology of abd pain such as esophagitis/gastritis, PUD etc noted on endoscopy today. * If H pylori +, patient will be prescribed eradication therapy followed by test of cure. * Avoid NSAIDs, smoking. * Cont Truvada BIOPSY Received: 10/25/23 Diagnosis A. Duodenal mucosa with preserved villi and focal mild changes suggesting chronic/non-specific duodenitis. B. Gastric antrum, biopsy: Gastric antral and body mucosa with focal ectatic vessels and focal minimal chronic inactive inflammation; negative for H pylori, intestinal metaplasia and dysplasia. Laboratory Tests 08/24/23 10/06/23 10:11 11:01 WBC 9.5 Hgb 15.0 Hct 46.2 Plt Count 225 Total Bilirubin 0.9 Direct Bilirubin 0.4 AST 37 ALT 30 Alkaline Phosphatase 72 Liver Fibrosis Stage F3 Amylase 58 Lipase 14 Assessment & Plan Assessment & Plan (1) Gastric pain: Code(s): R10.9 - Unspecified abdominal pain (2) Thoracic scoliosis: Code(s): M41.9 - Scoliosis, unspecified (3) Abdominal pain: Comment: Related to his Vemlidy treatment as it adverse effect Code(s): R10.9 - Unspecified abdominal pain (4) Chronic pancreatitis: Comment: Trial of Creon seem to cause him more pain Code(s): K86.1 - Other chronic pancreatitis Plan ? why Vemlidy stopped prior to procedure. He thought that the biopsy caused him more pain, but I explain that biopsies are done in [place] very superficial levels and this usually does not cause pain. And the pain he is describing is the same pain that we have been treating him for since he began seeing me. He was also upset about being told to hold his hepatitis medication and I am uncertain why this was held. I explained to him that there was really nothing on covered to explain his symptoms. He says that it is better when he drinks Mylanta and I certainly do not have any problem with him utilizing this as long as he knows that taking too much could cause him diarrhea. He also continues on his generic Nexium. At this point we will try dicyclomine to see if the pain is actually bowel mediated. If this is not the case then I think the pain is most likely related to the musculoskeletal system and the scoliosis of the thoracic spine. Return office visit in 4 weeks Medications: New dicyclomine 10 mg PO QID 120 caps 3RF R10.9 - Unspecified abdominal pain Coding Level of Care Code Est Pt Level 3 (56202) Diagnoses Gastric pain R10.9 Thoracic scoliosis M41.9 Abdominal pain R10.9 Chronic pancreatitis K86.1
[2023-12-01 11:57] VITALS: BP 140/83; BMI 25.2
== END 2023-12-01 12:53 | disposition home or self-care (01) ==
PROVIDERS: PCP Pediatrics; Visit Provider Nurse Practitioner
DX: R10.9 Unspecified abdominal pain (principal); M41.9 Scoliosis, unspecified; K86.1 Other chronic pancreatitis
CPT/HCPCS: 99213

== ENCOUNTER → 2023-12-01 11:47 | Outpatient (BNVA) | payer OTHER, SELFPAY | PROVIDERS: PCP Pediatrics; Visit Provider Nurse Practitioner | DX: R10.9 Unspecified abdominal pain (principal); M41.9 Scoliosis, unspecified; K86.1 Other chronic pancreatitis | CPT/HCPCS: 99212 ==

== ENCOUNTER 2023-12-09 12:05 | Outpatient (REF) | payer OTHER, SELFPAY ==
[2023-12-09 12:38] LABS: Alanine Aminotransferase 24 U/L (0-40); Albumin Level 4.3 g/dL (3.5-5.0); Alkaline Phosphatase 73 U/L (39-117); Anion Gap 12 (12-20); Aspartate Amino Transferase 24 U/L (5-37); Bilirubin Direct 0.3 mg/dL (0.0-0.5); Bilirubin Total 0.6 mg/dL (0.0-1.0); Blood Urea Nitrogen 15 mg/dL (9-16); Calcium 9.9 mg/dL (8.4-10.2); Carbon Dioxide 27 mmol/L (22-29); Chloride 104 mmol/L (96-108); Estimated Glomerular Filt Rate > 60; Glucose Random 100 mg/dL (60-115); Potassium 4.1 mmol/L (3.3-5.1); Sodium 139 mmol/L (135-145); Total Protein 8.3 g/dL (6.5-8.0)
[2023-12-10 19:23] LABS: Hepatitis B Viral DNA Qn - cp NOT DETECTED Log IU/mL (NOT DETECTED); Hepatitis B Viral DNA Qn-IU/mL NOT DETECTED (NOT DETECTED)
== END 2023-12-09 12:06 | disposition home or self-care (01) ==
LOC: HO.LAB 12:05
PROVIDERS: PCP Pediatrics; Visit Provider Internal Medicine
DX: B18.1 Chronic viral hepatitis B without delta-agent (principal)
CPT/HCPCS: 36415; 80048; 80076; 87517

== ENCOUNTER 2023-12-21 13:28 | Outpatient (AMB) | payer OTHER, SELFPAY ==
[2023-12-21 13:56] VITALS: PULSE 84; TEMP 36.9; O2SAT 98; BMI 25.7
--- NOTE | 2023-12-21 13:56 | MHC.OFFVIS ---
Intake Vital Signs 12/21/23 13:56 Height 5 ft 9 in Weight 174 lb BMI 25.7 Pulse 84 Pulse Source Pulse Oximeter Temp 98.5 F Temp Source Oral Pulse Oximetry (%) 98 Intake Visit Reasons: follow up,3 mth,lab Allergies adhesive [ADHESIVE] Allergy (Intermediate, Verified 12/21/23 13:57) RASH morphine [MORPHINE] Allergy (Unknown, Verified 12/21/23 13:57) SHORTNESS OF BREATH Penicillins [PENICILLINS] Allergy (Unknown, Verified 12/21/23 13:57) SWELLING tramadol [TRAMADOL] Allergy (Unknown, Verified 12/21/23 13:57) SHORTNESS OF BREATH ibuprofen [From MOTRIN] Adverse Reaction (Unknown, Verified 12/21/23 13:57) N/V, GI PAIN ibuprofen Allergy (Unknown, Uncoded 01/05/23 09:30) nausea and vomiting naproxen Allergy (Unknown, Uncoded 01/05/23 09:30) nausea and vomiting penicillin Allergy (Unknown, Uncoded 01/05/23 09:30) anaphylaxis tramadol Allergy (Unknown, Uncoded 01/05/23 09:30) redness and itching creon Adverse Reaction (Severe, Uncoded 01/05/23 09:30) Abdominal Pain HPI follow up,3 mth,lab HPI Details He represents for Hepatitis B care. He sees Shereen Schroeder of GI but told to come here to continue Vemlidy. He says he was afraid of increased creatinine potential on Truvada so is continued on Vemlidy. He has Hepatitis B viral load undetectable and feels well. [facility] Medical History Pre-op examination Thoracic spine pain Nausea and vomiting Tubular adenoma of colon Cocaine abuse Patient on methadone maintenance therapy COPD (chronic obstructive pulmonary disease) Complication of liver disease Opiate addiction HTN (hypertension) Surgical History History of ERCP History of esophagogastroduodenoscopy (EGD) H/O colonoscopy Family History Mother Diabetes HTN (hypertension) Sister Diabetes Social History Alcohol intake: current Alcohol intake frequency: holidays/special occasions only Alcohol type: beer Patient Tobacco Use Status: Current everyday Tobacco user Cigarettes Per Day: 2 Years Smoked: 45 Review of Systems Const All systems reviewed & are unremarkable except as noted in HPI and below Physical Exam Vital Signs: Last Vital Signs Temp 98.5 F 12/21/23 13:56 Pulse 84 12/21/23 13:56 Pulse Ox 98 12/21/23 13:56 BMI result Body Mass Index 25.7 Const General: cooperative Orientation/consciousness: patient oriented x3 HEENT Head: Yes normal to inspection Mouth: Normal oral and palatal mucosa present Eyes General: appearance normal, both eyes and all related structures Pupils: Equal, round and reactive pupils present Resp Effort & Inspection: normal respiratory effort Cardio Rate: regular rate Rhythm: regular rhythm GI Palpation (GI): Soft to palpation and nontender General: Yes no CVA tenderness Back/Spine/Pelvis Back: no CVA tenderness Skin General skin exam: no rashes or lesions noted Neuro General: patient oriented x3 Cranial nerves: Yes CN's II-XII intact bilaterally and Yes Equal, round and reactive pupils present Extrem General: Yes normal to inspection Psych Appearance: grossly normal Assessment & Plan Assessment & Plan (1) Chronic hepatitis B virus infection: Comment: He has been tolerating tenofovir alafenamide and stable Hepatitis B at this time. Code(s): B18.1 - Chronic viral hepatitis B without delta-agent Plan: Would continue Vemlidy. Hepatitis B labs and med continued. See in six months. Orders: Orders Basic Metabolic Panel 6 Months B18.1 - Chronic viral hepatitis B without delta-agent Complete Blood Count Auto Diff 6 Months B18.1 - Chronic viral hepatitis B without delta-agent Liver Fibrosis Pnl 6 Months B18.1 - Chronic viral hepatitis B without delta-agent Liver Panel 6 Months B18.1 - Chronic viral hepatitis B without delta-agent Hepatitis B Viral DNA Qn 6 Months B18.1 - Chronic viral hepatitis B without delta-agent US abdomen complete 4 Months B18.1 - Chronic viral hepatitis B without delta-agent Medications: New tenofovir alafenamide (Vemlidy) must administer with a meal/food 25 mg PO DAILY 30 tabs 5RF 30 days On Hold emtricitabine-tenofovir (TDF) 200-300 mg (Truvada) Hold Comment: Doctor's Order 1 tab PO DAILY 30 days 30 tabs 2RF Coding Level of Care Code Est Pt Level 3 (32467) Diagnoses Chronic hepatitis B virus infection B18.1
== END 2023-12-21 13:50 | disposition home or self-care (01) ==
LOC: HO.HID 13:28
PROVIDERS: PCP Pediatrics; Visit Provider Internal Medicine
DX: B18.1 Chronic viral hepatitis B without delta-agent (principal)
CPT/HCPCS: 99213

== ENCOUNTER → 2023-12-21 13:28 | Outpatient (BNVA) | payer OTHER, SELFPAY | PROVIDERS: PCP Pediatrics; Visit Provider Internal Medicine | DX: B18.1 Chronic viral hepatitis B without delta-agent (principal) | CPT/HCPCS: 99212 ==

== ENCOUNTER 2023-12-29 11:26 | Outpatient (AMB) | payer OTHER, SELFPAY ==
--- NOTE | 2023-12-29 11:37 | A.OFFVIS_ITS ---
Intake Vital Signs 12/29/23 11:39 Height 5 ft 9 in Weight 167 lb 8.821 oz BMI 24.7 BP 136/94 H Blood Pressure Location Rt brachial Position Sitting Pulse 72 Intake Visit Reasons: 4 week follow up Intake Note: Mohamud returns in follow up abdominal pain. CC: Patient states that he recently had the flu but he is doing well. Denies any new GI concerns today. 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 Allergies adhesive [ADHESIVE] Allergy (Intermediate, Verified 12/29/23 11:47) RASH morphine [MORPHINE] Allergy (Unknown, Verified 12/29/23 11:47) SHORTNESS OF BREATH Penicillins [PENICILLINS] Allergy (Unknown, Verified 12/29/23 11:47) SWELLING tramadol [TRAMADOL] Allergy (Unknown, Verified 12/29/23 11:47) SHORTNESS OF BREATH ibuprofen [From MOTRIN] Adverse Reaction (Unknown, Verified 12/29/23 11:47) N/V, GI PAIN ibuprofen Allergy (Unknown, Uncoded 01/05/23 09:30) nausea and vomiting naproxen Allergy (Unknown, Uncoded 01/05/23 09:30) nausea and vomiting creon Adverse Reaction (Severe, Uncoded 01/05/23 09:30) Abdominal Pain Medication List - Last Reconciled 12/29/23 by SWATI Vincent alprazolam 0.5 mg PO DAILY amlodipine 5 mg PO DAILY dicyclomine 10 mg PO QID tenofovir alafenamide (Vemlidy) 25 mg PO DAILY 30 days HPI 4 week follow up HPI Details Assessment & Plan (1) Gastric pain: Code(s): R10.9 - Unspecified abdominal pain (2) Thoracic scoliosis: Code(s): M41.9 - Scoliosis, unspecified (3) Abdominal pain: Comment: Related to his Vemlidy treatment as it adverse effect Code(s): R10.9 - Unspecified abdominal pain (4) Chronic pancreatitis: Comment: Trial of Creon seem to cause him more pain Code(s): K86.1 - Other chronic pancreatitis Plan ? why Vemlidy stopped prior to procedure. He thought that the biopsy caused him more pain, but I explain that biopsies are done in vandana very superficial levels and this usually does not cause pain. And the pain he is describing is the same pain that we have been treating him for since he began seeing me. He was also upset about being told to hold his hepatitis medication and I am uncertain why this was held. I explained to him that there was really nothing on covered to explain his symptoms. He says that it is better when he drinks Mylanta and I certainly do not have any problem with him utilizing this as long as he knows that taking too much could cause him diarrhea. He also continues on his generic Nexium. At this point we will try dicyclomine to see if the pain is actually bowel mediated. If this is not the case then I think the pain is most likely related to the musculoskeletal system and the scoliosis of the thoracic spine. Return office visit in 4 weeks Medications: New dicyclomine 10 mg PO QID 120 caps 3RF R10.9 - Unspecifie d abdominal pain TODAY'S VISIT He came down with the flu and has not tried the bentyl yet as he has been merary ling with a lot of other problems. He may try it when he recovers. ROV 6 weeks [facility] Medical History Pre-op examination Thoracic spine pain Nausea and vomiting Tubular adenoma of colon Cocaine abuse Patient on methadone maintenance therapy COPD (chronic obstructive pulmonary disease) Complication of liver disease Opiate addiction HTN (hypertension) Surgical History History of ERCP History of esophagogastroduodenoscopy (EGD) H/O colonoscopy Family History Mother Diabetes HTN (hypertension) Sister Diabetes Social History Alcohol intake: current Alcohol intake frequency: holidays/special occasions only Alcohol type: beer Patient Tobacco Use Status: Current everyday Tobacco user Cigarettes Per Day: 2 Years Smoked: 45 Review of Systems Const Reports body aches, Denies fatigue, Denies fever(s), Reports malaise, Denies night sweats, Denies poor appetite and Denies weight loss ENT Reports Normal hearing present, Denies dental pain, Denies dysphagia, Denies hearing loss, Denies mouth pain, Reports nasal congestion, Denies odynophagia, Reports post nasal drip, Denies throat swelling, Denies tongue swelling and Reports other (Dentition adequate) Card Reports no additional complaints and Reports dyspnea Resp Reports cough and Reports dyspnea GI Details: Reports abdominal pain, Denies melena, Denies bloating, Denies hematochezia, Denies constipation, Denies GI cramping, Denies dysphagia, Denies excessive flatus, Denies early satiety, Denies heartburn, Denies diarrhea, Denies nausea, Denies odynophagia, Denies vomiting and Denies hematemesis Skin/Breast Denies pruritus, Denies lesions, Denies rash and Denies jaundice Neuro Reports Normal hearing present and Denies Abnormal speech present Endo Denies fatigue Aller/Immun Denies throat swelling and Denies tongue swelling Physical Exam Vital Signs: Last Vital Signs Pulse 72 12/29/23 11:39 BP 136/94 H 12/29/23 11:39 BMI result Body Mass Index 24.7 Const General: cooperative, no acute distress, well developed and well groomed Nutritional Appearance: average body habitus and well nourished Orientation/consciousness: oriented to person, oriented to place and oriented to time Limitations: No language barrier HEENT Head: Yes normocephalic and Yes atraumatic Eyes General: appearance normal, both eyes and all related structures Pupils: Equal, round and reactive pupils present Neck Neck: Yes normal visual inspection and Yes no lymphadenopathy Thyroid: Thyroid normal Resp Effort & Inspection: normal respiratory effort and able to speak in complete sentences Auscultation: clear to auscultation bilaterally Cardio Rate: regular rate Rhythm: regular rhythm Heart sounds: Normal, physiologic split S2 sound present Peripheral pulses: radial pulses present and posterior tibial pulses present GI Inspection: No distended and No Abdominal panniculus present Palpation (GI): Soft to palpation, Tenderness to palpation present (GI), no guarding, not rigid and No hepatosplenomegaly present Percussion: Yes normal to percussion Auscultation: normal bowel sounds Rectal Exam - Male: Yes deferred Skin General skin exam: no rashes or lesions noted, turgor normal, skin not dry, no jaundice, No spider nevi and no striae Rashes: no rashes Nails: normal Neuro General: oriented to person, oriented to place and oriented to time Cranial nerves: Yes Equal, round and reactive pupils present and Yes Normal hearing present Speech: No Abnormal speech present Extrem General: Yes normal to inspection, No clubbing, No cyanosis and No edema Psych Appearance: grossly normal and well kempt Mental Status: mental status grossly normal Speech and movement: Normal speech and movement present Affect: normal affect Attitude: cooperative Thought process: Normal thought process present and not confabulating Thought content: Normal thought content present Insight: Limited insight present (Psych) Judgement: Limited judgement present (Psych) Assessment & Plan Assessment & Plan (1) Gastric pain: Code(s): R10.9 - Unspecified abdominal pain (2) Thoracic scoliosis: Code(s): M41.9 - Scoliosis, unspecified (3) Chronic pancreatitis: Comment: Trial of Creon seem to cause him more pain Code(s): K86.1 - Other chronic pancreatitis (4) Abdominal pain: Comment: Related to his Vemlidy treatment as it adverse effect Code(s): R10.9 - Unspecified abdominal pain Plan He came down with the flu and has not tried the bentyl yet as he has been dealing with a lot of other problems. He may try it when he recovers. ROV 6 weeks Coding Level of Care Code Est Pt Level 3 (39549) Diagnoses Gastric pain R10.9 Thoracic scoliosis M41.9 Chronic pancreatitis K86.1 Abdominal pain R10.9
[2023-12-29 11:39] VITALS: BP 136/94; PULSE 72; BMI 24.7
== END 2023-12-29 12:14 | disposition home or self-care (01) ==
PROVIDERS: PCP Pediatrics; Visit Provider Nurse Practitioner
DX: R10.9 Unspecified abdominal pain (principal); M41.9 Scoliosis, unspecified; K86.1 Other chronic pancreatitis
CPT/HCPCS: 99213

== ENCOUNTER → 2023-12-29 11:26 | Outpatient (BNVA) | payer OTHER, SELFPAY | PROVIDERS: PCP Pediatrics; Visit Provider Nurse Practitioner | DX: R10.9 Unspecified abdominal pain (principal); M41.9 Scoliosis, unspecified; K86.1 Other chronic pancreatitis | CPT/HCPCS: 99212 ==

== ENCOUNTER 2024-03-30 10:25 | Outpatient (REF) | payer OTHER, SELFPAY ==
--- NOTE | ~2024-03-30 | US_ITS ---
EXAMINATION: US ABDOMEN COMPLETE CLINICAL INFORMATION: Hepatitis B. COMPARISON: March 01, 2023 TECHNIQUE: Real-time imaging of the abdominal viscera. Limited visualization due to bowel gas. FINDINGS: PANCREAS: Limited visualization of pancreatic tail and head. Imaged portion of pancreatic body is unremarkable. ABDOMINAL AORTA: Limited visualization. Imaged portions of the mid abdominal aorta are nonaneurysmal. INFERIOR VENA CAVA: Visualized portions are normal. LIVER: Increased hepatic parenchymal heterogeneity and echogenicity could be associated with hepatocellular disease/hepatic steatosis and substantially limits visualization. Correlation with liver function tests and clinical exam recommended to determine further management. Hepatomegaly, 15.9 cm. 1.8 x 1.1 x 1.2 cm hypoechoic area within the right hepatic lobe with punctate echogenic focus, possibly representing punctate calcification. 0.8 x 0.6 x 1.1 cm hypoechoic focus in the right hepatic lobe. Differential considerations include areas of focal sparing within a fatty liver versus complex cyst/solid lesion. GALLBLADDER: Gallbladder appears distended. No gallstones. No gallbladder wall thickening. COMMON BILE DUCT: Normal in caliber measuring 1.0 cm in diameter. RIGHT KIDNEY: No hydronephrosis. No renal calculi. Limited visualization. The kidney measures 10.1 cm in maximum dimension. LEFT KIDNEY: No hydronephrosis. No renal calculi. Limited visualization. . The kidney measures 10.8 cm in maximum dimension. SPLEEN: Normal. The spleen measures 8.7 cm in maximum dimension. FREE FLUID: None. US/US abdomen complete IMPRESSION: 1. Increased hepatic parenchymal heterogeneity and echogenicity could be associated with hepatocellular disease/hepatic steatosis and substantially limits visualization. Correlation with liver function tests and clinical exam recommended to determine further management. Hepatomegaly, 15.9 cm. 2. A 1.8 x 1.1 x 1.2 cm hypoechoic area within the right hepatic lobe with punctate echogenic focus, possibly representing punctate calcification. A 0.8 x 0.6 x 1.1 cm hypoechoic focus in the right hepatic lobe. Differential considerations include areas of focal sparing within a fatty liver versus complex cyst/solid lesion. MRI with gadolinium should be considered for further characterization. 3. Gallbladder appears distended. Common bile duct is dilated, 1.0 cm. 3. No gallstones. Correlation with clinical and laboratory exam recommended to determine further management.
== END 2024-03-30 10:26 | disposition home or self-care (01) ==
LOC: HO.US 10:25
PROVIDERS: PCP Pediatrics; Visit Provider Internal Medicine
DX: B18.1 Chronic viral hepatitis B without delta-agent (principal)
CPT/HCPCS: 76700